=== PATIENT | female | born 1960 | race Caucasian/White ===

== ENCOUNTER 2016-11-11 07:34 | Emergency (ER) | payer MEDICARE, MEDICAID ==
[2016-11-11] MEDS ORDERED: SODIUM CHLORIDE 0.9% 1,000 ML ONE (08:20)
[2016-11-11] MEDS ORDERED: ONDANSETRON 4 MG VIAL ONE (08:20)
[2016-11-11] MEDS ORDERED: MORPHINE 4 MG/ML SYR ONE (08:20)
[2016-11-11] MEDS ORDERED: DICYCLOMINE 20MG/2ML VIAL IM ONE (09:45)
== END 2016-11-11 11:56 | disposition home or self-care (01) ==
LOC: ER 07:34
DX: K52.9 Noninfective gastroenteritis and colitis, unspecified (principal); N30.01 Acute cystitis with hematuria; I10 Essential (primary) hypertension; F17.210 Nicotine dependence, cigarettes, uncomplicated
CPT/HCPCS: 36415; 74020; 81001; 83690; 85025; 87088; 87804; 96361; 96372; 96374; 99284; J0500; J2405